=== PATIENT | female | born 1985 | race African-American/Black ===

== ENCOUNTER 2018-03-28 19:50 | Emergency (ER) | payer MEDICAID, OTHER ==
[2018-03-28] MEDS ORDERED: IBUPROFEN 600 MG TABLET PO ONE (20:47)
--- NOTE | 2018-03-28 20:51 | ER Document Report ---
ED Extremity Problem, Lower - General Chief Complaint: Foot Injury Stated Complaint: LT FOOT INJURY Time Seen by Provider: 03/28/18 20:12 Mode of Arrival: Ambulatory Information source: Patient TRAVEL OUTSIDE OF THE [place] IN LAST 30 DAYS: No - HPI Patient complains to provider of: Injury Location: Foot Occurred: Just prior to arrival Where: Home Notes: Patient is here with complaints of left foot pain. She states she has fell going down her steps at home injuring the lateral aspect of her left foot. She denies striking her head. No loss of consciousness. She denies any ankle or knee pain. No numbness, tingling, weakness. Pain is worse with movement, palpation, weightbearing. She denies any redness or swelling. No nausea, vomiting, diarrhea. No rash. No chest pain or shortness of breath. No other complaints at this time. - Related Data Allergies/Adverse Reactions: No Known Allergies Allergy (Unverified 03/28/18 19:54) Past Medical History - Social History Smoking Status: Current Every Day Smoker Frequency of alcohol use: Social Drug Abuse: None Family History: Reviewed & Not Pertinent Patient has suicidal ideation: No Patient has homicidal ideation: No Renal/ Medical History: Denies: Hx Peritoneal Dialysis Review of Systems - Review of Systems -: Yes All other systems reviewed and negative Physical Exam - Vital signs Vitals: Temp Pulse Resp BP Pulse Ox 98.6 F 91 12 123/87 H 98 03/28/18 20:07 03/28/18 20:07 03/28/18 20:07 03/28/18 20:07 03/28/18 20:07 - Notes Notes: GENERAL: alert, cooperative, nontoxic, no distress. HEAD: normocephalic, atraumatic EYES: conjunctiva pink without discharge, no external redness or swelling. EARS: no external swelling, no external redness NOSE: atraumatic, no external swelling MOUTH/THROAT: mucous membranes moist and pink NECK: soft, supple, full range of motion, no meningismus. CHEST: no distress, lungs clear and equal throughout. No wheezing, rales, rhonchi. CARDIAC: regular rate and rhythm, no murmur, normal capillary refill, normal pulses. BACK: full range of motion, no CVA tenderness. EXTREMITIES: full range of motion of all extremities. No redness, no swelling. Tenderness to palpation to the lateral aspect of the dorsum of the left foot. No deformity. No ankle tenderness to palpation. Achilles is intact with a normal Alcaraz's test. No proximal tib-fib tenderness. Normal pulse and sensation. Compartments are soft. NEURO: alert and oriented 3, no focal deficits, full range of motion of all extremities. PYSCH: appropriate mood, affect. Patient is cooperative. SKIN: pink, warm, dry, no rash. Course - Re-evaluation Re-evalutation: 03/28/18 21:16 Patient is nontoxic appearing with stable vitals. She is here with complaints of left foot pain after falling down the steps she does have a lateral foot pain. No deformity. No ankle tenderness. No proximal tib-fib tenderness. Compartments are soft. Normal neurovascular exam. No signs of infection. X- ray of the left foot show no acute abnormality. Patient will be placed in a postop shoe. Discharged home with prescription for Voltaren. Rest, ice, elevate. Follow-up if not better in the next week, sooner for worsening pain, fever, redness, numbness, tingling, weakness, any further concerns. The patient is noted to have elevated blood pressure during today's emergency department visit. The patient was informed of this finding. The patient was instructed that this may be related to pre-hypertension and requires further evaluation with a primary care provider. The patient has no hypertensive symptoms at this time. The patient's emergency department workup and current diagnosis were explained to the patient and or family. Follow-up instructions were provided. Medications if prescribed were discussed. Instructions for when to return to the emergency department including specific worrisome symptoms were discussed with the patient and/or family. - Vital Signs Vital signs: Temp Pulse Resp BP Pulse Ox 98.6 F 91 12 123/87 H 98 03/28/18 20:07 03/28/18 20:07 03/28/18 20:07 03/28/18 20:07 03/28/18 20:07 - Diagnostic Test Radiology reviewed: Image reviewed, Reports reviewed - neg left foot Procedures - Immobilization left foot Pre-Proc Neuro Vasc Exam: Normal Immobilizer type: Post-op shoe Performed by: PCT Post-Proc Neuro Vasc Exam: Normal Alignment checked and good: Yes Discharge - Discharge Clinical Impression: Other sprain of left foot, initial encounter Condition: Stable Disposition: HOME, SELF-CARE Instructions: Sprain ([facility]), Ice Packs ([facility]) Additional Instructions: Tylenol Motrin as needed for pain. Wear shoe as needed for comfort. Rest, ice , elevate. Follow-up if not better in 1 week, sooner for worsening pain, fever , redness, numbness, tingling, weakness, any further concerns. Your blood pressure was elevated during today's visit. Have this rechecked with your doctor. Forms: Elevated Blood Pressure, Smoking Cessation Education Referrals: [facility] [Provider Group] - Follow up as needed
--- NOTE | 2018-03-28 21:13 | RADIOLOGY REPORT (SQ) ---
EXAM DESCRIPTION: FOOT LEFT COMPLETE COMPLETED DATE/TIME: 03/28/2018 8:47 pm REASON FOR STUDY: pain s/p injury COMPARISON: None. NUMBER OF VIEWS: Three views. TECHNIQUE: AP, lateral and oblique radiographic images acquired of the left foot. LIMITATIONS: None. FINDINGS: MINERALIZATION: Normal. BONES: No acute fracture or dislocation. No worrisome bone lesions. JOINTS: No effusions. SOFT TISSUES: No soft tissue swelling. No foreign body. OTHER: No other significant finding. IMPRESSION: NEGATIVE STUDY OF THE LEFT FOOT. NO RADIOGRAPHIC EVIDENCE OF ACUTE INJURY. TECHNICAL DOCUMENTATION: JOB ID: [id number] [employer]- All Rights Reserved Reading location - IP/workstation name: [email or web address]
[2018-03-28 21:25] VITALS: BP 122/79
== END 2018-03-28 21:23 | disposition home or self-care (01) ==
LOC: ER 19:50
DX: S93.602A Unspecified sprain of left foot, initial encounter (principal); W10.9XXA Fall (on) (from) unspecified stairs and steps, initial encounter; Y92.009 Unspecified place in unspecified non-institutional (private) residence as the place of occurrence of the external cause; F17.200 Nicotine dependence, unspecified, uncomplicated
CPT/HCPCS: 99283; 73630; J3490

== ENCOUNTER 2018-11-18 16:09 | Emergency (ER) | payer SELFPAY ==
--- NOTE | 2018-11-18 16:45 | ER Document Report ---
HPI - HPI Patient complains to provider of: sore throat Time Seen by Provider: 11/18/18 16:38 Onset: Other - 2 days Onset/Duration: Gradual Quality of pain: Achy Pain Level: 5 Context: Patient presents complaining of sore throat for the past 2 days with fever yesterday. Patient also complains of vaginal discharge. Patient denies any urinary symptoms. Patient denies any concern about STDs. Patient states she did have some peeling of the skin to her hands that has since resolved but does have peeling to her feet. Associated Symptoms: Fever, Sore throat. denies: Nonproductive cough, Productive cough, Earache, Nausea Exacerbated by: Denies Relieved by: Denies Similar symptoms previously: No Recently seen / treated by doctor: No - ROS ROS below otherwise negative: Yes Systems Reviewed and Negative: Yes All other systems reviewed and negative - CONSTITUTIONAL Constitutional: REPORTS: Fever - EENT EENT: REPORTS: Sore Throat. DENIES: Congestion - NEURO Neurology: DENIES: Headache - RESPIRATORY Respiratory: DENIES: Trouble Breathing, Coughing - GASTROINTESTINAL Gastrointestinal: DENIES: Nausea, Patient vomiting - URINARY Urinary: DENIES: Dysuria - REPRODUCTIVE Reproductive: REPORTS: Abnormal bleeding / discharge. 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 IN LAST 30 DAYS: No - HEENT HEENT: Atraumatic, Normocephalic, Pharyngeal Tenderness, Pharyngeal Erythema. negative: Pharyngeal Exudate, Tympanic Membrane Red, Tympanic Membrane Bulging - NECK Neck: Normal Inspection, Supple. negative: Lymphadenopathy-Left, Lymphadenopathy-Right - RESPIRATORY Respiratory: Breath Sounds Normal, No Respiratory Distress - CARDIOVASCULAR Cardiovascular: Regular Rate, Regular Rhythm, No Murmur - GI/ABDOMEN Gastrointestinal: Abdomen Soft - BACK Back: Normal Inspection. negative: CVA Tenderness-Right, CVA Tenderness-Left - MUSCULOSKELETAL/EXTREMETIES Musculoskeletal/Extremeties: MAEW, FROM - NEURO Level of Consciousness: Awake, Alert, Appropriate Motor/Sensory: No Motor Deficit, No Sensory Deficit - DERM Integumentary: Warm, Dry Notes: peeling skin to plantar surface of feet Course - Vital Signs Vital signs: Temp Pulse Resp BP Pulse Ox 98.3 F 88 16 105/75 99 11/18/18 16:14 11/18/18 16:14 11/18/18 16:14 11/18/18 16:14 11/18/18 16:14 - Laboratory Laboratory results interpreted by me: 11/18/18 18:09 Labs- Entire Visit 11/18/18 11/18/18 11/18/18 16:51 16:51 17:33 Urine Color YELLOW Urine Appearance CLOUDY Urine pH 5.0 Ur Specific [place] 1.029 Urine Protein NEGATIVE Urine Glucose (UA) NEGATIVE Urine Ketones NEGATIVE Urine Blood NEGATIVE Urine Nitrite NEGATIVE Urine Bilirubin NEGATIVE Urine Urobilinogen 2.0 H Ur Leukocyte Esterase LARGE H Urine WBC (Auto) 39 Urine RBC (Auto) 15 Squamous Epi Cells Auto 30 Urine Mucus (Auto) MANY Urine Ascorbic Acid NEGATIVE Urine HCG, Qual NEGATIVE Epi Cells (Wet Prep) 3+ EPITHELIALS SEEN Bacteria (Wet Prep) 3+ BACTERIA SEEN Trichomonas (Wet Prep) TRICHOMONAS SEEN Vaginal WBC FEW WBCS SEEN Vaginal RBC FEW RBCS SEEN Vaginal Yeast NO YEAST SEEN Group A Strep Rapid NEGATIVE Discharge - Discharge Clinical Impression: Trichomonal infection, Vaginal discharge, Sore throat, Tinea UTI (urinary tract infection) Qualifiers: Urinary tract infection type: site unspecified Hematuria presence: without hematuria Qualified Code(s): N39.0 - Urinary tract infection, site not specified Condition: Stable Disposition: HOME, SELF-CARE Instructions: Cephalexin ([facility]), Metronidazole ([facility]), Skin Fungus ([facility]), Sore Throat ([facility]), Trichomonas Infection ([facility]), Urinary Tract Infection ([facility]) Additional Instructions: Return immediately for any new or worsening symptoms Followup with your primary care provider, call tomorrow to make a followup appointment Have partner seek treatment for trichomonal infection Cultures are pending, we will call if you need any different treatment Prescriptions: Cephalexin Monohydrate [Keflex 500 mg Capsule] 500 mg PO Q6H 5 Days capsule Ketoconazole [Nizoral] 1 applic TP DAILY #60 cream.gm. Ondansetron HCl [Zofran 4 mg Tablet] 1 - 2 tab PO Q6 PRN #8 tablet PRN Reason: Forms: Smoking Cessation Education [facility] [[facility]] - Follow up as needed
[2018-11-18 17:24] LABS: APPEARANCE,URINE CLOUDY; BILIRUBIN,URINE NEGATIVE (NEGATIVE); COLOR,URINE YELLOW; GLUCOSE, URINE NEGATIVE (NEGATIVE); KETONES,URINE NEGATIVE (NEGATIVE); LEUKOCYTE ESTERASE,URINE LARGE (NEGATIVE); NITRITE,URINE NEGATIVE (NEGATIVE); PROTEIN,URINE NEGATIVE (NEGATIVE); URINE SPECIFIC GRAVITY 1.029
[2018-11-18 17:49] LABS: BACTERIA (WET MOUNT) 3+ BACTERIA SEEN; EPITHELIALS (WET MOUNT) 3+ EPITHELIALS SEEN; RBCS (WET MOUNT) FEW RBCS SEEN; T.VAGINALIS (WET MOUNT) TRICHOMONAS SEEN; WBCS (WET MOUNT) FEW WBCS SEEN; YEAST (WET MOUNT) NO YEAST SEEN
[2018-11-18] MEDS ORDERED: CEFTRIAXONE INJ 250 MG VIAL IM ONE (17:59)
[2018-11-18] MEDS ORDERED: LIDOCAINE 1% INJ-PF (10 MG/ML) 30 ML SDV INJ ONE (17:59)
[2018-11-18] MEDS ORDERED: ONDANSETRON HCL 8 MG TABLET PO ONE (17:59)
[2018-11-18] MEDS ORDERED: METRONIDAZOLE 500 MG TABLET PO ONE (18:04)
[2018-11-18] MEDS ORDERED: AZITHROMYCIN 250 MG TABLET PO ONE (18:04)
[2018-11-18 18:50] VITALS: BP 131/86
[2018-11-18 19:49] LABS: CHLAM PCR NOT DETECTED (NOT DETECT); GON PCR NOT DETECTED (NOT DETECT)
== END 2018-11-18 18:51 | disposition home or self-care (01) ==
LOC: ER 16:09
DX: N39.0 Urinary tract infection, site not specified (principal); A59.01 Trichomonal vulvovaginitis; J02.9 Acute pharyngitis, unspecified; B35.8 Other dermatophytoses; R50.9 Fever, unspecified; F17.200 Nicotine dependence, unspecified, uncomplicated
CPT/HCPCS: 99283; 96372; 87070; 87210; 87880; 81025; 81001; 87491; 87591; J3490; S0119; J0696

== ENCOUNTER 2020-06-22 05:19 | Day surgery (SDC) | payer OTHER ==
[2020-06-17 09:49] LABS: HEMATOCRIT 37.8 % (36.0-47.0); HEMOGLOBIN 12.6 g/dL (12.0-15.5); MEAN CORPUSCULAR HEMOGLOBIN 33.5 pg (27.0-33.4); MEAN CORPUSCULAR HGB CONC 33.5 g/dL (32.0-36.0); MEAN CORPUSCULAR VOLUME 100 fl (80-97); PLATELET COUNT 328 10^3/uL (150-450); RED BLOOD COUNT 3.77 10^6/uL (3.72-5.28); WHITE BLOOD COUNT 4.8 10^3/uL (4.0-10.5)
[2020-06-17 09:58] LABS: APPEARANCE,URINE SLIGHTLY-CLOUDY; BILIRUBIN,URINE NEGATIVE (NEGATIVE); COLOR,URINE YELLOW; GLUCOSE, URINE NEGATIVE (NEGATIVE); KETONES,URINE NEGATIVE (NEGATIVE); LEUKOCYTE ESTERASE,URINE SMALL (NEGATIVE); NITRITE,URINE NEGATIVE (NEGATIVE); PROTEIN,URINE NEGATIVE (NEGATIVE); URINE SPECIFIC GRAVITY 1.027; UROBILINOGEN,URINE NEGATIVE mg/dL (<2.0)
[2020-06-17 10:17] LABS: ALBUMIN 4.3 g/dL (3.5-5.0); ALKALINE PHOSPHATASE 72 U/L (38-126); ANION GAP 7 (5-19); ASPARTATE AMINO TRANSFERASE 28 U/L (14-36); BILIRUBIN,TOTAL 0.4 mg/dL (0.2-1.3); BLOOD UREA NITROGEN 12 mg/dL (7-20); CALCIUM 9.4 mg/dL (8.4-10.2); CARBON DIOXIDE 25 mmol/L (22-30); CHLORIDE 107 mmol/L (98-107); GLUCOSE 91 mg/dL (75-110); TOTAL PROTEIN 8.3 g/dL (6.3-8.2)
[2020-06-17 10:18] LABS: POTASSIUM 4.1 mmol/L (3.6-5.0)
[~2020-06-22 05:19] MED LIST: CEFAZOLIN 2 GM/D5W RTU 2 GM/50 ML RTUPB IV PRN; LACTATED RINGERS 1000 ML IV PRN; LIDOCAINE 0.5% INJ-PF (5 MG/ML) 50 ML SDV SUBCUT PRN; RINGERS SOLUTION,LACTATED 1,000 ML IV PRN
[2020-06-22] MEDS ORDERED: CEFAZOLIN 2 GM/D5W RTU 2 GM/50 ML RTUPB IV ONE (05:24)
[2020-06-22] MEDS ORDERED: MIDAZOLAM 2 MG/2 ML INJ ONE (06:53)
[2020-06-22] MEDS ORDERED: HYDROMORPHONE HCL INJ/PF 2 MG/ML AMPULE ONE (06:53)
[2020-06-22] MEDS ORDERED: KETOROLAC TROMETHAMINE 60 MG/2 ML SDV ONE (06:53)
[2020-06-22] MEDS ORDERED: FENTANYL CITRATE INJ/PF 100 MCG/2 ML AMPUL ONE ×2 (06:53→10:05)
[2020-06-22] MEDS ORDERED: ONDANSETRON HCL INJ/PF 4 MG/2 ML SDV ONE (06:54)
[2020-06-22] MEDS ORDERED: PROPOFOL INJ 200 MG/20 ML VIAL IV ONE (06:55)
[2020-06-22] MEDS ORDERED: ONDANSETRON HCL INJ/PF 4 MG/2 ML SDV IV PRN (09:10)
[2020-06-22] MEDS ORDERED: PROMETHAZINE HCL INJ 25 MG/1 ML VIAL IV PRN ×3 (09:10→09:37)
[2020-06-22] MEDS ORDERED: MORPHINE SULFATE 10 MG/ML INJ IV PRN (09:10)
[2020-06-22] MEDS ORDERED: DIPHENHYDRAMINE HCL 50 MG/ML VIAL IV PRN (09:10)
[2020-06-22] MEDS ORDERED: FENTANYL CITRATE INJ/PF 100 MCG/2 ML AMPUL IV PRN ×3 (09:10)
[2020-06-22] MEDS ORDERED: OXYCODONE-ACETAMINOPHEN 5-325 MG TABLET PO PRN ×4 (09:10→09:37)
[2020-06-22] MEDS ORDERED: MEPERIDINE HCL/PF INJ 25 MG/1 ML DISP.SYRIN IV PRN (09:10)
[2020-06-22] MEDS ORDERED: ACETAMINOPHEN 325 MG TABLET PO PRN (09:37)
[2020-06-22] MEDS ORDERED: ACETAMINOPHEN 1,000 MG/100 ML RTUPB IV PRN (09:37)
[2020-06-22] MEDS ORDERED: SIMETHICONE 80 MG TAB.CHEW PO PRN (09:37)
[2020-06-22] MEDS ORDERED: HYDROMORPHONE HCL INJ/PF 2 MG/ML AMPULE IV PRN (09:37)
[2020-06-22] MEDS ORDERED: RINGERS SOLUTION,LACTATED 1,000 ML IV PRN (09:37)
--- NOTE | 2020-06-22 09:51 | Operative Report ---
Operative Report DATE OF SURGERY: 06/22/20 PREOPERATIVE DIAGNOSIS: Dysmenorrhea menorrhagia not responding well to medical management POSTOPERATIVE DIAGNOSIS: Same OPERATION: Robotic hysterectomy and removal both fallopian tubes SURGEON: DENNISE TOMLIN ANESTHESIA: GA TISSUE REMOVED OR ALTERED: Fallopian tubes and uterus COMPLICATIONS: None ESTIMATED BLOOD LOSS: 50 cc INTRAOPERATIVE FINDINGS: Normal-appearing ovaries PROCEDURE: Patient was taken the OR and placed in supine position. General anesthesia was induced. She was placed in the dorsolithotomy position using Nolberto stirrups. Her abdomen perineum and vagina were prepared and draped in a sterile fashion. A Luz catheter was placed. A weighted speculum was placed in the vagina and the anterior lip cervix was grasped with a tenaculum. Uterus was sounded to 7 cm. Cervix was gently dilated. This allowed placement of the [employer] [place] uterine manipulator. Next an incision was made at the umbilicus. The natural umbilical defect was dilated with Janny clamp allowing a blunt port to be placed. Under laparoscopic visualization both lateral ports were placed in the right lower quadrant port was placed for insufflation. The patient was then placed in the steep Trendelenburg and the robot was docked to the patient. We used monopolar keila on the right hand and bipolar cautery on the left hand. View of the pelvis was good. The ureters could be seen low in the pelvis away from the operative site. Next the fallopian tubes were removed by cauterizing along the mesosalpinx with the monopolar keila and removing the fallopian tubes bilaterally. Next the left round ligament was cauterized with bipolar keila and cut with monopolar keila. The left utero-ovarian pedicle was cauterized with bipolar cautery and cut with monopolar keila. Staying directly next to the uterus the broad ligament on the left was cauterized bipolar cut cautery and cut with monopolar keila. Upon reaching the uterine artery attention was diverted to the right side of the uterus. The right round ligament was cauterized with bipolar caut wes and cut with monopolar keila. The right utero-ovarian pedicle was also cauterized bipolar cautery and cut with monopolar keila. The anterior leaf of the broad ligament was developed creating a bladder flap. The uterine arteries on the right were cauterized with bipolar cautery and cut with monopolar keila. This was done staying directly next to the cervix. The cardinal ligament on the right also was cauterized with bipolar cautery and cut with monopolar keila staying directly next to the cervix. Next we went to the left side of the uterus and staying directly next to the uterus the uterine arteries were cauterized with bipolar cautery and cut with monopolar keila. And the left cardinal ligament also was cauterized bipolar cautery and cut with monopolar keila staying directly next to the cervix. Next the vaginal cuff was incised circumferentially at the V care cup. The uterus was removed through the vagina. The vaginal cuff was then inspected for bleeding and was closed with a 2-0 V lock suture. The monopolar keila were exchanged for a needle oil transport driver. The suture was passed into the field. The cuff was closed by starting at the right side of the vaginal cuff incorporating anterior vaginal mucosa lateral vaginal sidewall and posterior vaginal mucosa in the first stitch. The suture was placed through the loop and pulled tight. Next cuff was closed by incorporating anterior vaginal mucosa to posterior vaginal mucosa. Upon reaching the left side of the cup anterior vaginal mucosa lateral vaginal sidewall posterior vaginal mucosa were incorporated into the stitch. Several sutures were then taken medially as well. The stitch was cut and passed off the field. The pelvis was then irrigated and suctioned free of fluid. Hemostasis was assured at all ped icles. The robot was undocked from the patient. The ports were removed under laparoscopic visualization. The gas was allowed to escape from the abdomen and the umbilical port and scope were removed at the same time. The fascia at the umbilicus was closed with a 2-0 Vicryl stitch and skin at all 4 sites closed with a 4-0 undyed Vicryl stitch. Patient was taken to recovery in stable condition.
[2020-06-22] MEDS ORDERED: DOCUSATE SODIUM 100 MG CAPSULE PO SCH (10:00)
[2020-06-22] MEDS ORDERED: VECURONIUM BROMIDE INJ 10 MG VIAL IV ONE (13:41)
[2020-06-22] MEDS ORDERED: NEOSTIGMINE METHYLSULFATE 10 MG/10 ML VIAL ONE (13:41)
[2020-06-22] MEDS ORDERED: SUCCINYLCHOLINE CHLORIDE INJ 200 MG/10 ML VIAL ONE (13:41)
[2020-06-22] MEDS ORDERED: GLYCOPYRROLATE 1 MG/5 ML VIAL ONE (13:41)
[2020-06-22] MEDS ORDERED: KETOROLAC TROMETHAMINE INJ/PF 30 MG/1 ML SDV IV SCH (14:00)
[2020-06-22 15:59] LABS: ABSOLUTE LYMPHOCYTES (AUTO) 0.8 10^3/uL (0.5-4.7); ABSOLUTE MONOCYTES (AUTO) 0.3 10^3/uL (0.1-1.4); ABSOLUTE NEUT (AUTO) 7.3 10^3/uL (1.7-8.2); BASOPHILS % (AUTO) 0.4 % (0-2); HEMOGLOBIN 12.3 g/dL (12.0-15.5); LYMPHOCYTES % (AUTO) 9.5 % (13-45); MEAN CORPUSCULAR HEMOGLOBIN 33.2 pg (27.0-33.4); MEAN CORPUSCULAR HGB CONC 33.2 g/dL (32.0-36.0); MEAN CORPUSCULAR VOLUME 100 fl (80-97); MONOCYTES % (AUTO) 3.3 % (3-13); PLATELET COUNT 329 10^3/uL (150-450); RED BLOOD COUNT 3.71 10^6/uL (3.72-5.28); RED CELL DISTRIBUTION WIDTH 14.1 % (11.5-14.0); SEGMENTED NEUTROPHILS % (AUTO) 86.8 % (42-78); TOTAL CELLS COUNTED % (AUTO) 100 %; WHITE BLOOD COUNT 8.4 10^3/uL (4.0-10.5)
[2020-06-22 16:18] LABS: ANION GAP 10 (5-19); BLOOD UREA NITROGEN 10 mg/dL (7-20); CALCIUM 9.2 mg/dL (8.4-10.2); CARBON DIOXIDE 24 mmol/L (22-30); CHLORIDE 99 mmol/L (98-107); GLUCOSE 109 mg/dL (75-110); POTASSIUM 4.5 mmol/L (3.6-5.0)
--- NOTE | 2020-06-22 17:28 | PDOC DISCHARGE SUMMARY ---
Impression - Admit/DC Date/PCP Admission Date/Primary Care Provider: [facility] Discharge Date: 06/22/20 - Discharge Diagnosis (1) Menorrhagia Is this a current diagnosis for this admission?: Yes - Assessment Summary: She was admitted for a Davinci hysterectomy. Please see the operative report. She is doing well tonight and would like to be discharged home. Her followup is scheduled. No driving. Pelvic rest. No heavy lifting. - Additional Information Resuscitation Status: Full Code Discharge Diet: As Tolerated Discharge Activity: Balance Activity w/Rest, No Driving, Pelvic Rest [facility]errals: [facility] [Primary Care Provider] - Prescriptions: Oxycodone HCl/Acetaminophen [Percocet 5-325 mg Tablet] 1 tab PO Q4HP PRN 7 Days #28 tablet PRN Reason: Docusate Sodium [Colace 100 mg Capsule] 100 mg PO BID #60 capsule Ibuprofen [Motrin 800 mg Tablet] 800 mg PO Q8H #30 tablet Home Medications: Duloxetine HCl 60 mg PO HSP PRN 06/17/20 Docusate Sodium [Colace 100 mg Capsule] 100 mg PO BID #60 capsule 06/22/20 Ibuprofen [Motrin 800 mg Tablet] 800 mg PO Q8H #30 tablet 06/22/20 Oxycodone HCl/Acetaminophen [Percocet 5-325 mg Tablet] 1 tab PO Q4HP PRN 7 Days #28 tablet 06/22/20 History of Present Illiness History of Present Illness: CHARLEE SIERRA is a 34 year old female Physical Exam - Physical Exam Vital Signs: Temp Pulse Resp BP Pulse Ox 97.8 F 64 16 135/72 H 100 06/22/20 15:14 06/22/20 15:14 06/22/20 15:14 06/22/20 15:14 06/22/20 15:14 Intake & Output 06/21/20 06/22/20 06/23/20 06:59 06:59 06:59 Intake Total 0 1030 Output Total 125 Balance 0 905 Weight 95 kg Results Laboratory Results: WBC 8.4 10^3/uL (4.0-10.5) 06/22/20 15:36 RBC 3.71 10^6/uL (3.72-5.28) L 06/22/20 15:36 Hgb 12.3 g/dL (12.0-15.5) 06/22/20 15:36 Hct 37.0 % (36.0-47.0) 06/22/20 15:36 MCV 100 fl (80-97) H 06/22/20 15:36 MCH 33.2 pg (27.0-33.4) 06/22/20 15:36 MCHC 33.2 g/dL (32.0-36.0) 06/22/20 15:36 RDW 14.1 % (11.5-14.0) H 06/22/20 15:36 Plt Count 329 10^3/uL (150-450) 06/22/20 15:36 Lymph % (Auto) 9.5 % (13-45) L 06/22/20 15:36 Hand % (Auto) 3.3 % (3-13) 06/22/20 15:36 Eos % (Auto) 0.0 % (0-6) 06/22/20 15:36 Baso % (Auto) 0.4 % (0-2) 06/22/20 15:36 Absolute Neuts (auto) 7.3 10^3/uL (1.7-8.2) 06/22/20 15:36 Absolute Lymphs (auto) 0.8 10^3/uL (0.5-4.7) 06/22/20 15:36 Absolute Monos (auto) 0.3 10^3/uL (0.1-1.4) 06/22/20 15:36 Absolute Eos (auto) 0.0 10^3/uL (0.0-0.6) 06/22/20 15:36 Absolute Basos (auto) 0.0 10^3/uL (0.0-0.2) 06/22/20 15:36 Seg Neutrophils % 86.8 % (42-78) H 06/22/20 15:36 Sodium 132.9 mmol/L (137-145) L 06/22/20 15:36 Potassium 4.5 mmol/L (3.6-5.0) 06/22/20 15:36 Chloride 99 mmol/L (98-107) 06/22/20 15:36 Carbon Dioxide 24 mmol/L (22-30) 06/22/20 15:36 Anion Gap 10 (5-19) 06/22/20 15:36 BUN 10 mg/dL (7-20) 06/22/20 15:36 Creatinine 0.61 mg/dL (0.52-1.25) 06/22/20 15:36 Est GFR ( Amer) > 60 (>60) 06/22/20 15:36 Est GFR (MDRD) Non-Af > 60 (>60) 06/22/20 15:36 Glucose 109 mg/dL (75-110) 06/22/20 15:36 Calcium 9.2 mg/dL (8.4-10.2) 06/22/20 15:36 Total Bilirubin 0.4 mg/dL (0.2-1.3) 06/17/20 09:15 Direct Bilirubin 0.0 mg/dL (0.0-0.4) 06/17/20 09:15 Neonat Total Bilirubin Not Reportable 06/17/20 09:15 Neonat Direct Bilirubin Not Reportable 06/17/20 09:15 Neonat Indirect Bili Not Reportable 06/17/20 09:15 AST 28 U/L (14-36) 06/17/20 09:15 ALT 19 U/L (<35) 06/17/20 09:15 Alkaline Phosphatase 72 U/L (38-126) 06/17/20 09:15 Total Protein 8.3 g/dL (6.3-8.2) H 06/17/20 09:15 Albumin 4.3 g/dL (3.5-5.0) 06/17/20 09:15 Urine Color YELLOW 06/17/20 09:10 Urine Appearance SLIGHTLY-CLOUDY 06/17/20 09:10 Urine pH 5.0 (5.0-9.0) 06/17/20 09:10 Ur Specific [place] 1.027 06/17/20 09:10 Urine Protein NEGATIVE mg/dL (NEGATIVE) 06/17/20 09:10 Urine Glucose (UA) NEGATIVE mg/dL (NEGATIVE) 06/17/20 09:10 Urine Ketones NEGATIVE mg/dL (NEGATIVE) 06/17/20 09:10 Urine Blood NEGATIVE (NEGATIVE) 06/17/20 09:10 Urine Nitrite NEGATIVE (NEGATIVE) 06/17/20 09:10 Urine Bilirubin NEGATIVE (NEGATIVE) 06/17/20 09:10 Urine Urobilinogen NEGATIVE mg/dL (<2.0) 06/17/20 09:10 Ur Leukocyte Esterase SMALL (NEGATIVE) H 06/17/20 09:10 Urine WBC (Auto) 11 /HPF 06/17/20 09:10 Urine RBC (Auto) 3 /HPF 06/17/20 09:10 Urine Bacteria (Auto) TRACE /HPF 06/17/20 09:10 Squamous Epi Cells Auto 2 /HPF 06/17/20 09:10 Urine Mucus (Auto) MANY /LPF 06/17/20 09:10 Urine Ascorbic Acid 40 (NEGATIVE) H 06/17/20 09:10 Urine HCG, Qual NEGATIVE (NEGATIVE) 06/22/20 05:30 COVID-19 Source NASOPHARYNGEAL 06/17/20 09:25 COVID-19 ([facility]ARA) NOT DETECTED 06/17/20 09:25 Blood Type O NEGATIVE 06/20/20 09:22 Antibody Screen NEGATIVE 06/20/20 09:22 Stroke Is this a Stroke Patient?: No Acute Heart Failure - Is this a Heart Failure Patient?: No
[2020-06-22 17:31] VITALS: BP 140/50
[2020-06-23] MEDS ORDERED: IBUPROFEN 800 MG TABLET PO SCH (12:00)
== END 2020-06-22 17:53 | disposition home or self-care (01) ==
LOC: OROUT 05:19 → 2N 11:52 → OROUT 17:53
PROVIDERS: ATTEND Obstetrics & Gynecology
DX: N93.9 Abnormal uterine and vaginal bleeding, unspecified (principal); N94.6 Dysmenorrhea, unspecified; N92.0 Excessive and frequent menstruation with regular cycle; F17.210 Nicotine dependence, cigarettes, uncomplicated; Z79.899 Other long term (current) drug therapy; Z03.818 Encounter for observation for suspected exposure to other biological agents ruled out
CPT/HCPCS: 58571; S2900; 36415; 80048; 80053; 81001; 81025; 840; 85025; 85027; 86850; 86900; 86901; 87635; 88307; C1758; C9803; J0330; J0690; J1170; J1885; J2250; J2405; J2550; J2704; J2710; J3010; J3490